=== PATIENT | male | born 1975 | race Caucasian/White ===

== ENCOUNTER → 2021-08-13 | Outpatient (CLI) | payer OTHER | LOC: KOH-I 11:02 | DX: M51.16 Intervertebral disc disorders with radiculopathy, lumbar region (principal); M47.26 Other spondylosis with radiculopathy, lumbar region | CPT/HCPCS: 72100 ==

== ENCOUNTER → 2021-09-12 | Outpatient (CLI) | payer OTHER ==
[~2021-09-12] MED LIST: AMLODIPINE BESY10 MG PO; GABAPENTIN300 MG PO; HYDROXYZINE PAM25 MG PO; LIPITOR TAB 2020 MG PO; LISINOPRIL20 MG PO; MIRTAZAPINE30 MG PO; SERTRALINE HCL100 MG PO; VOLTAREN EC 5050 MG PO
[2021-09-12 09:26] LABS: HEMOGLOBIN 16.3 gm/dl (14.0-17.5); RED BLOOD COUNT 5.28 M/UL (4.20-5.50); WHITE BLOOD COUNT 9.4 K/UL (4.5-11.0)
[2021-09-12 09:45] LABS: BUN/CREATININE RATIO 12 (0-10)
== END ==
LOC: OPSV2 08:06
PROVIDERS: Orthopaedic Surgery
DX: Z01.812 Encounter for preprocedural laboratory examination (principal); S83.207A Unspecified tear of unspecified meniscus, current injury, left knee, initial encounter; X58.XXXA Exposure to other specified factors, initial encounter
CPT/HCPCS: 36415; 80048; 85025

== ENCOUNTER → 2022-01-15 | Outpatient (CLI) | payer OTHER ==
[~2022-01-15] MED LIST changes: +HYDROCODON-ACE1 EAC2 PO
== END ==
LOC: KOH-I 09:39
DX: M79.672 Pain in left foot (principal); M79.671 Pain in right foot
CPT/HCPCS: 73630

== ENCOUNTER → 2022-03-19 | Outpatient (CLI) | payer OTHER | LOC: KOH-I 09:29 | DX: M25.511 Pain in right shoulder (principal); M25.512 Pain in left shoulder; M19.012 Primary osteoarthritis, left shoulder; M19.011 Primary osteoarthritis, right shoulder | CPT/HCPCS: 73030 ==